=== PATIENT | female | born 1990 | race Caucasian/White ===

== ENCOUNTER 2023-10-24 08:07 | Outpatient (CLI) | payer OTHER, SELFPAY ==
--- NOTE | 2023-10-24 08:15 | US_ITS ---
Final Report Patient: CARLOTA BECKER Facility:?[facility] Patient ID:?[id number] Site Patient ID:?[id number]. Site :?1990 Study:?US OB Pelvis TV dating/viability-10/24/2023 8:57:39 AM Ordering Physician:FLORENTIN Final Report: INDICATION: First trimester scan, establish dates. COMPARISON: None. TECHNIQUE: Real-time brown-scale imaging of the pelvis was performed. FINDINGS: Sonographic imaging demonstrates a single living intrauterine gestation. The embryo demonstrates a regular cardiac rate measuring 165 beats per minute. The embryo`s crown-rump length measurement of 1.5 cm corresponds to a gestational age of 7 weeks 6 days with a sonographic due date of 06/05/2024. There is a normal-appearing yolk sac. There are no gross abnormalities noted within the embryo at this early state of development. The gestational sac has a normal appearance. There is a 1.4 x 0.4 x 0.4 cm perigestational hemorrhage. The amount of fluid within the sac appears appropriate for gestational age. The cervix is closed. The myometrium appears normal. The ovaries are of normal size. Corpus luteal cyst right ovary. There are no suspicious fluid collections noted in the cul-de-sac. IMPRESSION: Single living intrauterine with sonographic gestational age 7 weeks 6 days and a sonographic due date of 06/05/2024. Right fundal subchorionic hemorrhage measuring 1.4 x 0.4 x 0.4 cm. Dictated by Felix Caballero MD @ 10/24/2023 9:05:18 AM (Electronic Signature)
== END 2023-10-24 08:08 | disposition home or self-care (01) ==
LOC: US 08:07
PROVIDERS: Visit Provider Advanced Practice Midwife
DX: Z34.91 Encounter for supervision of normal pregnancy, unspecified, first trimester (principal); O20.9 Hemorrhage in early pregnancy, unspecified; Z3A.01 Less than 8 weeks gestation of pregnancy
CPT/HCPCS: 76817

== ENCOUNTER 2023-10-24 10:00 | Outpatient (CLI) | payer OTHER, SELFPAY | END 2023-10-24 10:01 | disposition home or self-care (01) | LOC: NFLDREF 10-25 06:26 | PROVIDERS: Referring Provider Obstetrics & Gynecology; Visit Provider Advanced Practice Midwife | DX: Z34.91 Encounter for supervision of normal pregnancy, unspecified, first trimester (principal); Z3A.08 8 weeks gestation of pregnancy | CPT/HCPCS: 86592; 86703; 86704; 86706; 86762; 86787; 86803; 86850; 86900; 86901; 87086; 87340; 87491; 87591 ==

== ENCOUNTER 2024-01-16 10:54 | Outpatient (CLI) | payer BC, SELFPAY | END 2024-01-16 10:55 | disposition home or self-care (01) | PROVIDERS: Visit Provider Obstetrics & Gynecology | DX: Z34.92 Encounter for supervision of normal pregnancy, unspecified, second trimester (principal); Z3A.20 20 weeks gestation of pregnancy; D22.9 Melanocytic nevi, unspecified; Z86.718 Personal history of other venous thrombosis and embolism | CPT/HCPCS: 81240; 81241; 86146; 86147 ==

== ENCOUNTER 2024-02-07 13:32 | Outpatient (CLI) | payer BC, SELFPAY ==
--- OUTSIDE RECORDS SUMMARY | 2024-02-23 18:42 | XMS_ITS | Encounter Summary ---
Author Organization [facility] Address [address] [place] [address] Care Team Providers Care Supervisor Ditching Name Role Phone No Ref-Primary, Physician Primary Care Provider Reason for Referral * Diagnostic Imaging Ultrasound (Routine) - Pending Review Specialty Diagnoses / Procedures Referred By Cali carvajal Referred To Contact Radiology. Diagnoses Personal history of venous thrombosis and embolism Procedures [facility] US Comprehensive Josef Leija MD [address] [place] [address] Referral ID Status Reason Start Date Expiration Date V isits Requested Visits Authorized [id number] Pending Review 12/25/2023 12/24/2024 1 1 Reason for Visit * Diagnostic Imaging Ultrasound (Routine) - Pending Review Specialty Diagnoses / Procedures Referred By Cali carvajal Referred To Contact Radiology. Diagnoses Personal history of venous thrombosis and embolism Procedures [facility] US Josef Watt MD [address] [place] [address] Referral ID Status Reason Start Date Expiration Date V isits Requested Visits Authorized [id number] Pending Review 12/25/2023 12/24/2024 1 1 Encounter Details Date Type Department Care Team (Latest Contact Info) Description 01/10/2024 9:18 AM CDT - 01/10/2024 11:59 PM CDT Hospital Encounter [facility] [address] [facility] [address] [place] [phone] Blanca Cho MD [address] [place] [address] Personal history of venous thrombosis and embolism Discharge Disposition: Home or Self Care Social History Tobacco Use Types Packs/Day Years Used Date Smoking Tobacco: Never Assessed Adolescent Education Answer Date Record ed Getting School Help Needed Not on file 12/19 Estimated Date of Delivery Comme nts Yes 06/01/2024 Based on last me nstrual period of 08/26/2023 Sex and Gender Information Value Date Recorded Sex Assigned at Not on file Gender Identity Not on file Sexual Orientation Not on file documented as of this encounter Medications at Time of Discharge Medication Sig Dispensed Refills Start Date End Date enoxaparin ANTICOAGULANT (LOVENOX ANTICOAGULANT) 40 MG/0.4ML syringe Inject 40 mg Subcutaneous daily 10/24/2023 MV-Min-Fe Fum-FA-DHA ( 1 PO) Take 1 tablet by mouth daily 10/24/2023 documented as of this encounter Plan of Treatment Not on file documented as of this encounter Procedures Procedure Name Priority Date/Time Associated Diagnosis Comments [facility] COMPREHENSIVE SINGLE Routine 01/10/2024 11:09 AM CDT Personal history of venous thrombosis and embolism documented in this encounter Results * [facility] Comprehensive Single (01/10/2024 11:09 AM CDT) Anatomical Region Laterality Modality Ultrasound 01/10/2024 9:57 AM CDT Impressions 01/10/2024 4:01 PM CDT IMPRESSION ----- 1. Whiting at 19w 4d gestational age. 2. No anomalies commonly detected by ultrasound were identified in the detailed anatomic survey within the limits of ultrasound. 3. Growth parameters and estimated weight were consistent with gestational age predicted by assigned PIETRE. 4. The amniotic fluid volume appeared normal. 5. On transabdominal imaging the cervix appeared long and closed. 6. The placenta is anterior with a marginal placental cord insertion. Narrative 01/10/2024 4:01 PM CDT ?Comprehensive ----- Pat. Name: CARLOTA HANDY ? Study Date: ??01/10/2024 9:57am Pat. NO: ??[id number] ?Referring ??MD: SHERON GRIFFITH Site: ??[facility] ? Meat Stock Clerk: Janet Perera RDMS : ??1990 ?Age: ?? 33 ----- INDICATION ----- History of DVT x 2 METHOD ----- Transabdominal ultrasound examination. View: Sufficient ----- Whiting . Number of fetuses: 1 DATING ----- ? Date ?Details ?Gest. age ?PIETER LMP ?08/26/2023 ? 19 w + 4 d ? 06/01/2024 Prior assessment ? 10/24/2023 ? GA: 7 w + 6 d ?19 w + 0 d ? 06/05/2024 U/S ? 01/10/2024 ?based upon AC, BPD, Femur, HC ? 19 w + 3 d ? 06/02/2024 Assigned dating ?Dating performed on 01/10/2024, based on the LMP ?19 w + 4 d ? 06/01/2024 GENERAL EVALUATION ----- Cardiac activity present. FHR 144 bpm. movements present. Presentation breech. Placenta Anterior, No Previa, > 2 cm from internal os. Umbilical cord 3 vessel cord, marginal insertion. Amniotic fluid Amount of AF: normal. MVP 4.3 cm. BIOMETRY ----- Main Biometry: BPD ?44.2 ?mm ? 19w 3d ?Hadlock OFD ?57.3 ?mm ? 18w 6d ?Nicolaides HC ?163.0 ?mm ?19w 0d ?Hadlock Cerebellum tr ?18.7 ? mm ?18w 2d ?Nicolaides AC ?150.1 ?mm ?20w 2d ?68% ?Hadlock Femur ?28.9 ? mm ?18w 6d ?Hadlock Humerus ?29.7 ?mm ? 19w 5d ?Velvet Weight Calculation: EFW ? 299 ? g ? 43% ?Hadlock EFW (lb,oz) ? 0 lb 11 ? oz EFW by ?Hadlock ([id number]) Head / Face / Neck Biometry: Flat Sheet Maker ? 6.1 ? mm CM ?3.9 ? mm Nasal bone ? 5.5 ? mm Nuchal fold ? 2.7 ? mm ANATOMY ----- The following structures appear normal: Head / Neck ? Cranium. Head size. Head shape. Lateral ventricles. Choroid plexus. Midline falx. Cavum septi pellucidi. Cerebellum. Cisterna magna. ? Parenchyma. Thalami. Vermis. ? Neck. Nuchal fold. Face ? Lips. Profile. Nose. Maxilla. Mandible. Orbits. Lens. Heart / Thorax ?4-chamber view. RVOT view. LVOT view. Situs. Aortic arch view. Bicaval view. Ductal arch view. Superior vena cava. Inferior vena cava. 3-vessel ? view. 4-zkbshk-iwiuxjl view. Cardiac position. Cardiac size. Cardiac rhythm. ? Right lung. Left lung. Diaphragm. Abdomen ? Abdominal wall. Cord insertion. Stomach. Kidneys. Bladder. Liver. Bowel. Genitals. Spine ?Cervical spine. Thoracic spine. Lumbar spine. Sacral spine. Extremities / Skeleton ?Right arm. Right hand. Left arm. Left hand. Right leg. Right foot. Left leg. Left foot. Gender: female. MATERNAL STRUCTURES ----- Cervix ?Visualized ? Appearance: Appears Closed ? Cervical length 35.4 mm Right Ovary ?Visualized Left Ovary ?Visualized RECOMMENDATION ----- Thank-you for referring your patient for MFM consult & ultrasound assessment. I discussed the findings on today's ultrasound with the patient. I reviewed the limitations of ultrasound both in detecting aneuploidy and structural abnormalities. Ultrasound can routinely detect 80-90% of structural abnormalities. She had low risk cell free DNA for genetic screening this . Please see separate note in Epic for full details from today's consult visit including recommendations for ongoing management. Additionally, we reviewed the finding of a marginal placental cord insertion. Due to this growth is recommended at 28 and 34 weeks. If there is progression to a velamentous cord insertion then monthly ultrasound assessment of growth is recommended in addition to weekly surveillance starting at 36 weeks. I presume these follow-ups will be done in your office, but can be scheduled here if preferred. Return to primary provider for continued care. If you have questions regarding today's evaluation or if we can be of further service, please contact the [facility]. anomalies may be present but not detected Procedure Note Blanca Cho MD - 01/10/2024 Comprehensive ----- Pat. Name: CARLOTA HANDY Study Date: 01/10/2024 9:57am Pat. NO: [id number] Referring MD: SHERON GRIFFITH Site: [facility] Meat Stock Clerk: Janet Perera RDMS : 1990 Age: 33 ----- INDICATION ----- History of DVT x 2 METHOD ----- Transabdominal ultrasound examination. View: Sufficient ----- Whiting . Number of fetuses: 1 DATING ----- DateDetailsGest. age PIETER LMP w + 4 d 06/01/2024 Prior assessment 10/24/2023 GA: 7 w +6 d19 w + 0 d 06/05/2024 U/S 01/10/2024ased upon AC, BPD, Femur, HC19 w + 3 d 06/02/2024 Assigned dating Dating performed on 01/10/2024, based onthe LMP 19 w+ 4 d 06/01/2024 GENERAL EVALUATION ----- Cardiac activity present. FHR 144 bpm. movements present. Presentation breech. Placenta Anterior, No Previa, > 2 cm from internal os. Umbilical cord 3 vessel cord, marginal insertion. Amniotic fluid Amount of AF: normal. MVP 4.3 cm. BIOMETRY ----- Main Biometry: BPD 44.2 mm19w 3d Hadlock OFD 57.3 mm18w 6d Nicolaides HC 163.0 mm19w 0d Hadlock Cerebellum tr 18.7 mm18w 2d Nicolaides AC 150.1 mm20w 2d 68% Hadlock Femur 28.9 mm18w 6d Hadlock Humerus 29.7 mm19w 5d Velvet Weight Calculation: EFW 299 g43% Hadlock EFW (lb,oz) 0 lb 11 oz EFW by Hadlock ([id number]) Head / Face / Neck Biometry: Flat Sheet Maker 6.1 mm CM 3.9 mm Nasal bone 5.5 mm Nuchal fold 2.7 mm ANATOMY ----- The following structures appear normal: Head / Neck Cranium. Head size. Head shape.Lateral ventricles. Choroid plexus. Midline falx. Cavum septi pellucidi.Cerebellum. Cisterna magna. Parenchyma. Thalami. Vermis. Neck. Nuchal fold. Face Lips. Profile. Nose. Maxilla.Mandible. Orbits. Lens. Heart / Thorax 4-chamber view. RVOT view. LVOT view.Situs. Aortic arch view. Bicaval view. Ductal arch view. Superior venacava. Inferior vena cava. 3-vessel view. 1-gxmgcv-qougvcj view.Cardiac position. Cardiac size. Cardiac rhythm. Right lung. Left lung.Diaphragm. Abdomen Abdominal wall. Cord insertion.Stomach. Kidneys. Bladder. Liver. Bowel. Genitals. Spine Cervical spine. Thoracic spine.Lumbar spine. Sacral spine. Extremities / Skeleton Right arm. Right hand. Left arm. [place]ef[place]and. Right leg. Right foot. Left leg. Left foot. Gender: female. MATERNAL STRUCTURES ----- Cervix Visualized Appearance: Appears Closed Cervical length 35.4 mm Right Ovary Visualized Left Ovary Visualized RECOMMENDATION ----- Thank-you for referring your patient for M consult & ultrasoundassessment. I discussed the findings on today's ultrasound with the patient. Ireviewed the limitations of ultrasound both in detecting aneuploidy andstructural abnormalities. Ultrasound can routinely detect 80-90% of structural abnormalities. She had low riskcell free DNA for genetic screening this . Please see separate note in Epic for full details from today's consultvisit including recommendations for ongoing management. Additionally, we reviewed the finding of a marginal placental cordinsertion. Due to this growth is recommended at 28 and 34 weeks. Ifthere is progression to a velamentous cord insertion then monthly ultrasound assessment of fetalgrowth is recommended in addition to weekly surveillancestarting at 36 weeks. I presume these follow-ups will be done in your office, but can be scheduledhere if preferred. Return to primary provider for continued care. If you have questions regarding today's evaluation or if we can be offurther service, please contact the [facility]. anomalies may be present but not detected IMPRESSION ----- 1. Whiting at 19w 4d gestational age. 2. No anomalies commonly detected by ultrasound were identified inthe detailed anatomic survey within the limits of prenatalultrasound. 3. Growth parameters and estimated weight were consistent withgestational age predicted by assigned PIETER. 4. The amniotic fluid volume appeared normal. 5. On transabdominal imaging the cervix appeared long and closed. 6. The placenta is anterior with a marginal placental cord insertion. Josef Yoo MD [facility] US ORDERABLE S documented in this encounter Visit Diagnoses Diagnosis Personal history of venous thrombosis and embolism documented in this encounter Care Teams Supervisor Ditching Relationship Specialty Start Date End Date No Ref-Primary, Physician PCP - General 12/25/23 documented as of this encounter
--- OUTSIDE RECORDS SUMMARY | 2024-02-23 18:42 | XMS_ITS | Encounter Summary ---
Author Organization [facility] Address [address] [place] [address] Care Team Providers Care Trap Puller Name Role Phone No Ref-Primary, Physician Primary Care Provider Encounter Details Date Type Department Care Team (Latest Contact Info) Description 01/10/2024 Travel Social History Tobacco Use Types Packs/Day Years [...] on file documented as of this encounter Plan of Treatment Not on file documented as of this encounter Visit Diagnoses Not on filedocumented in this encounter Care Teams Trap Puller Relationship Specialty Start Date End Date No Ref-Primary, Physician PCP - General 12/25/23 documented as of this encounter
--- OUTSIDE RECORDS SUMMARY | 2024-02-23 18:42 | XMS_ITS | Clinical Summary ---
Author Organization [facility] Address [address] [place] [address] Care Team Providers Care Electric Motor Tester Assembler Name Role Phone No Ref-Primary, Physician Primary Care Provider Blanca Cho MD Unavailable [phone] Allergies Active Allergy Reactions Criticality Noted Date Comments Sulfa Antibiotics Rash High 12/19/2023 Medications Medication Sig Dispensed Refills Start Date End Date Status enoxaparin ANTICOAGULANT (LOVENOX ANTICOAGULANT) 40 MG/0.4ML syringe Inject 40 mg Subcutaneous daily 10/24/2023 Active MV-Min-Fe Fum-FA-DHA ( 1 PO) Take 1 tablet by mouth daily 10/24/2023 Active Encounters Date Type Department Care Team Description 01/10/2024 11:00 AM CDT Office Visit [facility] Medicine [facility] [address] [place] [phone] Blanca Cho MD Personal history of venous thrombosis and embolism (Primary Dx); Marginal insertion of umbilical cord affecting management of mother in second trimester 01/10/2024 9:30 AM CDT Office Visit [facility] Medicine [facility] [address] [facility] [address] [place] [address] Blanca Cho MD Eddy, Kaitlyn Encounter for screening (Primary Dx); Personal history of venous thrombosis and embolism; Family history of chromosomal abnormality 01/10/2024 9:18 AM CDT - 01/10/2024 11:59 PM CDT Hospital Encounter [facility] [address] [facility] [address] [place] [phone] Blanca Cho MD Personal history of venous thrombosis and embolism Discharge Disposition: Home or Self Care 01/10/2024 Travel 01/02/2024 PRE VISIT [facility] [address] [place] [phone] Amanda Delaney RN Ultrasound (History DVTx2); Genetic Counseling (History of DVTx2) 12/25/2023 Orders Only [facility] [address] [place], [place] [phone] Belinda Callahan, YESY Personal history of venous thrombosis and embolism (Primary Dx) 12/20/2023 Telephone [facility] [address] [place], [place] [phone] Belinda Callahan, YESY 12/19/2023 Medical Correspondence [facility] Info [facility] [address] [place] [address] Scan, Non-Provider 12/19/2023 Transcribe Orders [facility] [address] [facility] [address] [place] [address] Afshan Griffith MD related condition (Primary Dx) from Last 3 Months Social History Tobacco Use Types Packs/Day Years [...] on file Sexual Orientation Not on file Last Filed Vital Signs Vital Sign Reading Time Taken Comments Blood Pressure 132/72 01/10/2024 10:09 AM CDT Pulse 73 01/10/2024 10:09 AM CDT Temperature 36.8 ??C (98.3 ??F) 01/10/2024 10:09 AM C DT Respiratory Rate 18 01/10/2024 10:09 AM CDT Oxygen Saturation 100% 01/10/2024 10:09 AM CDT RA Inhaled Oxygen Concentration - - Weight - - Height - - Body Mass Index - - Plan of Treatment Health Maintenance Due Date Last Done Comments ADVANCE CARE PLANNING 1990 ANNUAL REVIEW OF HM ORDERS 1990 YEARLY PREVENTIVE VISIT 1990 HIV SCREENING 2005 HEPATITIS C SCREENING 01/31/2008 PAP 2011 COVID-19 Vaccine ( season) 2023 07/13/2021, 12/05/2020, 11/14/2020 PHQ-2 (once per calendar year) 2023 MATERNAL SCREENING DISCUSSION 11/04/2023 OBGCT (OB) 02/10/2024 INFLUENZA VACCINE (Season Ended) 2024 06/16/2022, 06/23/2021, 06/19/2020, Additional history exists RSV VACCINE ( & 60+) (1 - Risk 1-dose series) 05/05/2024 DTAP/TDAP/TD IMMUNIZATION (5 - Td or Tdap) 01/27/2028 01/26/2018, 06/19/2017, 07/20/2012, Additional history exists HEPATITIS B IMMUNIZATION Completed 006, 06/09/2005, 04/05/2005 MENINGITIS IMMUNIZATION Aged Out 11/16/2005 No l onger eligible based on patient's age to complete this topic HPV IMMUNIZATION Completed 06/04/2008, , 11/20/2007 IPV IMMUNIZATION Aged Out No longer e ligible based on patient's age to complete this topic Pneumococcal Vaccine: Pediatrics (0 to 5 Years) and At-Risk Patients (6 to 64 Years) Aged Out No longer eligible based on patient's age to complete this topic RSV MONOCLONAL ANTIBODY Aged Out No l onger eligible based on patient's age to complete this topic Procedures Procedure Name Priority Date/Time Associated Diagnosis Comments [facility] COMPREHENSIVE SINGLE Routine 01/10/2024 11:09 AM CDT Personal history of venous thrombosis and embolism from Last 3 Months Results * [facility] US Comprehensive Single (01/10/2024 11:09 AM CDT) Anatomical Region Laterality Modality Ultrasound 01/10/2024 9:57 AM CDT Impressions 01/10/2024 4:01 PM CDT IMPRESSION ----- 1. Whiting at 19w 4d gestational age. 2. No anomalies commonly detected by ultrasound were identified in the detailed anatomic survey within the limits of ultrasound. 3. Growth parameters and estimated weight were consistent with gestational age predicted by assigned PIETER. 4. The amniotic fluid volume appeared normal. 5. On transabdominal imaging the cervix appeared long and closed. 6. The placenta is anterior with a marginal placental cord insertion. Narrative 01/10/2024 4:01 PM CDT ?Comprehensive ----- Pat. Name: CARLOTA HANDY ? Study Date: ??01/10/2024 9:57am Pat. NO: ??[id number] ?Referring ??: AFSHAN GRIFFITH Site: ??[facility] ? Editorial Director: Janet Perera RDMS : ??1990 ?Age: ?? [...] 0 lb 11 ? oz EFW by ?[facility] ([id number]) Head / Face / Neck Biometry: Film Processing Supervisor ? 6.1 ? mm CM ?3.9 ? [...] cava. Inferior vena cava. 3-vessel ? view. 4-yalrdd-luiymxj view. Cardiac position. Cardiac size. Cardiac rhythm. [...] HANDY Study Date: 01/10/2024 9:57am Pat. NO: [id number] Referring MD: AFSHAN GRIFFITH Site: [facility] Editorial Director: Janet Perera RDMS : 1990 Age: 33 [...] 0 lb 11 oz EFW by Hadlock ([id number]) Head / Face / Neck Biometry: Film Processing Supervisor 6.1 mm CM 3.9 mm Nasal bone [...] Superior venacava. Inferior vena cava. 3-vessel view. 7-gwzrop-dbjztto view.Cardiac position. Cardiac size. Cardiac rhythm. Right [...] ----- Thank-you for referring your patient for [facility] consult & ultrasoundassessment. I discussed the findings [...] marginal placental cord insertion. Josef Yoo MD [facility] ORDERABLE S from Last 3 Months Care Teams Electric Motor Tester Assembler Relationship Specialty Start Date End Date No Ref-Primary, Physician PCP - General 12/25/23 Blanca Cho MD [address] [place] [address] Assigned OBGYN Provider 01/25/24
--- OUTSIDE RECORDS SUMMARY | 2024-02-23 18:42 | XMS_ITS | Referral Summary ---
Author Organization [facility] Address [address] [place] [address] Care Team Providers Care Sanitation Worker Hosing Machinery Name Role Phone No Ref-Primary, Physician Primary Care Provider Blanca Cho MD Unavailable [phone] Encounters Date Type Department Care Team Description 01/10/2024 Travel 01/10/2024 9:18 AM CDT - 01/10/2024 11:59 PM CDT Hospital Encounter [facility] Medicine [facility] [address] [facility] [address] [place] [phone] Blanca Cho MD Personal history of venous thrombosis and embolism Discharge Disposition: Home or Self Care 01/10/2024 11:00 AM CDT Office Visit [facility] Medicine [facility] [address] [facility] [address] [place] [phone] Blanca Cho MD Personal history of venous thrombosis and embolism (Primary Dx); Marginal insertion of umbilical cord affecting management of mother in second trimester 01/10/2024 9:30 AM CDT Office Visit [facility] [address] [facility] [address] [place] [phone] Blanca Cho MD Eddy, Kaitlyn, GC Encounter for screening (Primary Dx); Personal history of venous thrombosis and embolism; Family history of chromosomal abnormality 01/02/2024 PRE VISIT [facility] Medicine [address] [place] [phone] Amanda Delaney RN Ultrasound (History DVTx2); Genetic Counseling (History of DVTx2) 12/25/2023 Orders Only [facility] [place] [address] [place] [address] Belinda Callahan, RN Personal history of venous thrombosis and embolism (Primary Dx) 12/20/2023 Telephone [facility] [place] [address] [place] [address] Belinda Callahan, YESY 12/19/2023 Medical Correspondence [facility] [address] [place] [address] Scan, Non-Provider 12/19/2023 Transcribe Orders [facility] Maternal [facility] [address] [facility] [address] [place] [address] Afshan Griffith MD related condition (Primary Dx) from Last 3 Months Allergies Active Allergy Reactions Criticality Noted Date Comments Sulfa Antibiotics Rash High 12/19/2023 Medications Medication Sig Dispensed Refills Start Date End Date Status enoxaparin ANTICOAGULANT (LOVENOX ANTICOAGULANT) 40 MG/0.4ML syringe Inject 40 mg Subcutaneous daily 10/24/2023 Active MV-Min-Fe Fum-FA-DHA ( 1 PO) Take 1 tablet by mouth daily 10/24/2023 Active Social History Tobacco Use Types Packs/Day Years [...] Mass Index - - Plan of Treatment Not on file Procedures Procedure Name Priority Date/Time Associated Diagnosis Comments [facility] US COMPREHENSIVE SINGLE Routine 01/10/2024 11:09 AM CDT Personal history of venous thrombosis and embolism from Last 3 Months Results * [facility] US Comprehensive Single (01/10/2024 11:09 AM [...] ? Study Date: ??01/10/2024 9:57am Pat. NO: ??[id number] ?Referring ??MD: AFSHAN GRIFFITH Site: ??[facility] ? Human Resources Office Assistant: Janet Perera RDMS : ??1990 ?Age: ?? [...] lb 11 ? oz EFW by ?Hadlock (NBH-OC-IM-FL) Head / Face / Neck Biometry: Aging Department Supervisor ? 6.1 ? mm CM ?3.9 [...] cava. Inferior vena cava. 3-vessel ? view. 2-gybjii-kzuraog view. Cardiac position. Cardiac size. Cardiac rhythm. [...] HANDY Study Date: 01/10/2024 9:57am Pat. NO: [id number] Referring MD: AFSHAN GRIFFITH Site: [facility] Human Resources Office Assistant: Janet Perera RDMS : 1990 Age: 33 [...] 0 lb 11 oz EFW by Hadlock (KDE-IY-VO-FL) Head / Face / Neck Biometry: Aging Department Supervisor 6.1 mm CM 3.9 mm Nasal [...] Superior venacava. Inferior vena cava. 3-vessel view. 3-sukvya-bptpyxl view.Cardiac position. Cardiac size. Cardiac rhythm. Right [...] ----- Thank-you for referring your patient for [facility] consult & ultrasoundassessment. I discussed the [...] today's evaluation or if [facility] can [facility], please contact the [facility]. [...] with a marginal placental cord insertion. Josef WELCH [facility] US ORDERABLE S from Last 3 Months Care Teams Sanitation Worker Hosing Machinery Relationship Specialty Start Date End Date No Ref-Primary, Physician PCP - General 12/25/23 Blanca Cho MD [address] [place] [address] Assigned OBGYN Provider 01/25/24
--- OUTSIDE RECORDS SUMMARY | 2024-02-23 18:42 | XMS_ITS | Encounter Summary ---
Author Organization [facility] Address [address] [place] [address] Care Team Providers Care Teacher Theater Arts Name Role Phone No Ref-Primary, Physician Primary Care Provider Reason for Visit * Reason Comments Genetic Counseling * Consultation (Routine: Next available opening) - Pending Review Specialty Diagnoses / Procedures Referred By Cali t Referred To Contact Diagnoses Personal history of venous thrombosis and embolism Josef Yoo MD [address] [place] [address] Referral ID Status Reason Start Date Expiration Date V isits Requested Visits Authorized [id number] Pending Review 12/25/2023 12/24/2024 1 1 Encounter Details Date Type Department Care Team (Late st Contact Info) Description 01/10/2024 9:30 AM CDT Office Visit [facility] [place] [address] [facility] [address] [place] [phone] Blanca Cho MD [address] [place] [address] Mayelin Dick GC [address] [place] [address] Encounter for screening (Primary Dx); Personal history of venous thrombosis and embolism; Family history of chromosomal abnormality Social History Tobacco Use Types Packs/Day Years [...] on file documented as of this encounter Progress Notes * Mayelin DickOREN - 01/10/2024 9:30 AM CDT [facility] Medicine [place] Genetic Counseling Consult Patient: Katharina Handy Date of : 1990 Date of Service: 01/10/24 Katharina was seen at the [facility] [place] for genetic counseling consultation as part of her appointment for level II comprehensive ultrasound. The patient was unaccompanied to our portion of today's visit. IMPRESSION/ PLAN 1. Katharina underwent [id number] NIPT earlier in this , which was low risk. She is aware amniocentesis remains available. 2. Katharina had a comprehensive (level II) ultrasound today. Please see the ultrasound report for further details. 3. 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 She reported her thrombophilia work up was WNL. She is on Lovenox. She had a MFM consult today, please see corresponding report for further details. HISTORY /Parity: Age at Delivery: 34 year old Gestational Age: 19w4d PIETER: 06/01/2024, by Last Menstrual Period No significant complications or exposures were reported in the current . 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 She reported her thrombophilia work up was WNL. She is on Lovenox. She had a MFM consult today, please see corresponding report for further details. FAMILY HISTORY A three-generation pedigree was obtained today and is scanned under the Media tab in [facility] [employer]. It is important to note that the family history provided is based on the patient's recollection and reported in the absence of medical records. If the family history changes or if more information is obtained, the patient should contact our clinic as this may alter recommendations. The following significant findings were reported today: It was reported that Luke's brother has Down syndrome. We reviewed that over 95% of cases of Down syndrome result from trisomy 21 caused by nondisjunction. Rarely, Down syndrome occurs due to a translocation involving chromosome 21, which, if carried by other family members, puts them at increased risk to have a baby with Down syndrome. This is likely a sporadic case in his brother, however a familial translocation cannot be excluded without further details of the affected individual. It was reported that Luke's mother and several of her siblings were found to have factor V Leiden. Factor V Leiden thrombophilia is an inherited blood clotting disorder caused by a particular geneticvariant in the F5 gene that provides instructions for a protein called sports analyst factor V. Individuals with factor V leiden thrombophilia are at higher risk of developing a deep venous thrombosis (DVT) which can occur throughout the body. We reviewed risk for Luke and subsequently the couple's children. It was reported that Luke has not undergone testing for factor V. We reviewed that this information should be shared with his primary care provider and their musical instrument maker. It was reported that Katharina's maternal uncle had a son who at age 1 due to what they believe was leukemia. This uncle has three daughters and was reported to have had multiple losses of male pregnancies. We reviewed that there can be X-linked dominant conditions with lethality in males. Given this is history is through her uncle, it is less likely to increase risk for Katharina if thiswere to be the cause for the loss of these male pregnancies. We did review expanded carrier screening options, which were declined. Otherwise, the reported family history is unremarkable for multiple miscarriages, stillbirths, defects, intellectual disabilities, known genetic conditions, and consanguinity. CARRIER SCREENING Expanded carrier screening is available to screen for autosomal recessive conditions and X-linked conditions in a large list of genes. Autosomal recessive conditions happen when a mutation has been inherited from the egg and sperm and include conditions like cystic fibrosis, thalassemia, hearing loss, spinal muscular atrophy, and more. X-linked conditions happen when a mutation has been inheritedfrom the egg and include conditions like fragile X syndrome. The patient did not elect to pursue the carrier screening options discussed today, however is awarethese remain available. RISK ASSESSMENT FOR CHROMOSOME CONDITIONS We explained that the risk for chromosome abnormalities increases with maternal age. We discussed specific features of common chromosome abnormalities, including Down syndrome, trisomy 13, trisomy 18, and sex chromosome trisomies. At age 34 at midtrimester, the risk to have a baby with Down syndrome is 1 in 342. At age 34 at midtrimester, the risk to have a baby with any chromosome abnormality is 1 in 172. Katharina underwent [id number] NIPT earlier in this . We reviewed with result in detail today. Results indicate NO ANEUPLOIDY DETECTED for chromosomes 21, 18, or 13. Sex chromosome aneuploidies were not assessed. This puts her current at low risk for Down syndrome, trisomy 18, and trisomy 13. Although these results are reassuring, this does not replace a standard chromosome analysis from a chorionic villus sampling or amniocentesis. GENETIC TESTING OPTIONS Genetic testing during a includes screening and diagnostic procedures. We discussed the following ultrasound options: Comprehensive level II ultrasound ( Anatomy Ultrasound) Ultrasound done between 18-20 weeks gestation Screens for major defects and markers for aneuploidy (like trisomy 21 and trisomy 18) Includes looking at the fetus/baby's growth, heart, organs (stomach, kidneys), placenta, and amniotic fluid We discussed the following diagnostic options: Amniocentesis Invasive diagnostic procedure done after 15 weeks gestation The procedure collects a small sample of amniotic fluid for the purpose of chromosomal testing and/or other genetic testing Diagnostic result; more than 99% sensitivity for chromosome abnormalities Testing for AFP in the amniotic fluid can test for open neural tube defects The benefits and limitations of noninvasive screening were reviewed. Screening tests provide a riskassessment (chance) specific to the for certain chromosome abnormalities but cannotdefinitively diagnose or exclude a chromosome abnormality. Follow-up genetic counseling and consideration of diagnostic testing is recommended with any abnormal screening result. Diagnostic testing during a is more certain and can test for more conditions. However, the tests do havea risk of miscarriage that requires careful consideration. These tests can detect chromosome abnormalities with greater than 99% certainty. Results can be compromised by maternal cell contamination or mosaicism and are limited by the resolution of current genetic testing technology. There is no screening or diagnostic test that detects all forms of defects or intellectual disability. It was a pleasure to be involved with Katharina???s care. [id number]-tx-[id number] time of the meeting was 18 minutes. Mayelin Dick MS, [facility] Licensed Genetic Counselor [facility] Maternal Medicine [email or web address] documented in this encounter Plan of Treatment Not on file documented as of this encounter Visit Diagnoses Diagnosis Encounter for screening- Primary Personal history of venous thrombosis and embolism Family history of chromosomal abnormality Family history of congenital anomalies documented in this encounter Care Teams Teacher Theater Arts Relationship Specialty Start Date End Date No Ref-Primary, Physician PCP - General 12/25/23 documented as of this encounter
--- OUTSIDE RECORDS SUMMARY | 2024-02-23 18:42 | XMS_ITS | Encounter Summary ---
Author Organization [facility] Address [address] [place] [address]. [place] [address] Care Team Providers Care Tire Service Technician Name Role Phone Unavailable Primary Care Provider Unavailabl e Reason for Referral * Consultation (Routine: Next available opening) - Pending Review Specialty Diagnoses / Procedures Referred By Cali carvajal Referred To Contact Diagnoses related condition Afshan Ruiz MD [facility] [address] [place] [address] Fax: Maternal Med [address] [place] [address] Referral ID Status Reason Start Date Expiration Date V isits Requested Visits Authorized [id number] Pending Review 12/19/2023 12/18/2024 1 1 Question Answer Preferred Location: [facility] - [place] 06/01/2024 Ultrasound Comprehensive US (>than 18 weeks [place]) US PROC NONE MFM Issue OTHER (enter details in Comments) - personal history of other venous thrombosis and embolism fax [facility], Afshan Ruiz, Comments There is no height or weight on file to calculate BMI. >> Patient may proceed with recommendations for further testing as directed by the Maternal Medicine Specialist >> >> If requesting Echo: MFM will determine appropriate location for exam due to indication. Please be aware that coverage of these services is subject to the terms and limitations of your health insurance plan. Call member services at your health plan with any benefit or coverage questions. Encounter Details Date Type Department Care Team (Latest Contact Info) Description 12/19/[address] [facility] [place] [address] [place] [phone] Afshan Ruiz MD [address] [address] related condition (Primary Dx) Social History Tobacco Use Types Packs/Day Years Used Date Smoking Tobacco: Never Assessed Adolescent Education Answer Date Record ed Getting School Help Needed Not on file 12/19 Sex and Gender Information Value Date Recorded Sex Assigned at Not on file Gender Identity Not on file Sexual Orientation Not on file documented as of this encounter Plan of Treatment Scheduled Referrals Name Type Priority Associated Diagnoses Orde r Schedule Mat Med Ctr Referral - Referral Routine: Next available opening related condition Expected: 12/19/2023 (Approximate), Expires: 06/16/2024 documented as of this encounter Visit Diagnoses Diagnosis related condition- Primary Unspecified complication of , unspecified as to episode of care documented in this encounter
--- OUTSIDE RECORDS SUMMARY | 2024-02-23 18:42 | XMS_ITS | Encounter Summary ---
Author Organization [facility] Address [address] [place] [address] Care Team Providers Care Supervisor Scrap Preparation Name Role Phone No Ref-Primary, Physician Primary Care Provider Reason for Visit * Reason Comments Ultrasound History DVTx2 Genetic Counseling History of DVTx2 Encounter Details Date Type Department Care Team ([facility] st Contact Info) Description 01/02/2024 PRE VISIT [facility] [address] [phone] Amanda Delaney RN Ultrasound (History DVTx2); Genetic Counseling (History of DVTx2) Social History Tobacco Use Types Packs/Day Years [...] on filedocumented in this encounter Care Teams Supervisor Scrap Preparation Relationship Specialty Start Date End Date No Ref-Primary, Physician PCP - General 12/25/23 documented as of this encounter
--- OUTSIDE RECORDS SUMMARY | 2024-02-23 18:42 | XMS_ITS | Encounter Summary ---
Author Organization [facility] Address [address] [place] [address] Care Team Providers Care Contact Lens Manufacturer Name Role Phone No Ref-Primary, Physician Primary Care Provider Reason for Visit * Reason Comments Genetic Counseling Hx DVT x 2, PCOS, fa roly hx T21 Ultrasound L2- Hx DVT x 2, PCOS , family hx T21 Consult Hx DVT x 2, PCOS, fa roly hx T21 * Consultation (Routine: Next available opening) - Pending Review Specialty Diagnoses / Procedures Referred By Contac t Referred To Contact Diagnoses Personal history of venous thrombosis and embolism Josef Yoo MD [address] [place] [address] Referral ID Status Reason Start Date Expiration Date V isits Requested Visits Authorized [id number] Pending Review 12/25/2023 12/24/2024 1 1 Encounter Details Date Type Department Care Team (Late st Contact Info) Description 01/10/2024 11:00 AM CDT Office Visit [facility] [place] [address] [facility] [address] [place] [address] Blanca Cho MD [address] [place] [address] Personal history of venous thrombosis and embolism (Primary Dx); Marginal insertion of umbilical cord affecting management of mother in second trimester Social History Tobacco Use Types Packs/Day Years [...] on file documented as of this encounter Last Filed Vital Signs Vital Sign Reading [...] - - Body Mass Index - - documented in this encounter Progress Notes * Blanca Cho MD - 01/10/2024 11:00 AM CDT Images from the original note were not included. Maternal Medicine January 10, [address] Ruzi, Thank you for referring your patient Ms. Handy for a Maternal- Medicine consultation today. As you know, she is a 33 year old at 19w4d by LMP c/w 7 week ultrasound with a history of 2 prior DVTs. With regards to her VTE history - Katharina reports that these occurred in her teens. She reports that she was taking a combined OCP when she had the first episode. She reports that she received therapeutic anticoagulation and there was confirmed resolution. She reports still being on OCPs and then having a second lower extremity DVT approximately 2 years later. Although it is documented elsewhere that she had a thrombophilia workup following her VTE she reports to me that she has NOT been testedfor inherited or acquired thrombophilias to her knowledge. No one in her family has had a VTE. In her first she was on prophylactic lovenox throughout and through 6 weeks . This she has also been on prophylactic lovenox. She is having trouble with pain at the injection site (her partner gives her the injections) and reports it just makes her feel off. She has actually not been taking her lovenox the last few days. She is otherwise feeling well. She denies contractions, leakage of fluid and vaginal bleeding. She reports good movement. Obstetrical History: OB History Para Term AB Living 2 1 1 0 0 1 SAB IAB Ectopic Multiple Live Births 0 0 0 0 1 # Outcome Date GA Lbr Ricco/2nd Weight Sex Type Anes PTL Lv 2 Current 1 Term 03/2018 Vag-Vacuum KRISTAL Complications: History of episiotomy Medical History: Past Medical History: Diagnosis Date Personal history of DVT (deep vein thrombosis) x 2 Surgical History: Past Surgical History: Procedure Laterality Date APPENDECTOMY LAPAROSCOPY DIAGNOSTIC (SKILLED NURSING PROFESSIONAL) TONSILLECTOMY & ADENOIDECTOMY Family History: Please see genetic counseling note for full 3-generation family history. She specifically denies a family history of motor/intellectual impairment, stillbirth, genetic or chromosome abnormalities or congenital anomalies. BP 132/72 (BP Location: Right arm, Patient Position: Sitting, Cuff Size: Adult Regular) Pulse 73 Temp 98.3 ??F (36.8 ??C) (Oral) Resp 18 LMP 08/26/2023 SpO2 100% Gen: NAD CV: Regular rate Pulm: Breathing comfortably Abd: Soft, nontender, gravid Ext: WWP Assessment & Recommendations: 33 year old at 19w4d by LMP c/w 7 week ultrasound with a history of 2 prior DVTs. We reviewed that normal is marked by increased clotting potential due to multiple physiologic changes that occur. Because of these changes / patients have a 4-5 fold increased risk of venous thromboembolism (VTE) compared with non patients. The risk of VTE is higher during the period than it is during , especially during the first week . The most important individual risk factor for VTE in is a personal history of thrombosis. The risk of recurrent VTE during is increased threefold to fourfold and 15-25% of all cases of VTE in are recurrent events. The next most important individual risk factor for VTE in is the presence of a thrombophilia. Thrombophilia is present in up to 20-50% of women who experience VTE during and the period. Both acquired and inherited thrombophilias increase the risk of VTE in . We reviewed that ACOG recommendation is for women with a history of thrombosis who have not had a complete evaluation of possible underlying etiologies should be tested for antiphospholipid antibodies and for inherited thrombophilias as the results of thrombophilia testing in women with a prior VTEmay alter the recommendation for pharmacologic prophylaxis during or the intensity of treatment from a prophylactic to an adjusted-dose regimen of sya-ytuvrjbaq-khgbph heparin. We discussedthat since she has not yet had thrombophilia testing this is an evaluation we should do. Some of the components of the evaluation, however, are unable to be performed during /while on anticoagulation, and therefore completion of her work-up will need to be done once off anticoagulation. Additionally, we discussed that she is currently on prophylactic dosing of Lovenox (40mg per day). We reviewed that ACOG recommendations for patients with 2 or more episodes of VTE, not receiving long-term anticoagulation therapy (regardless of presence of a thrombophilia) should be on intermediateor adjusted dose LMWH throughout and . For Katharina this would either be 40mg every 12 hours (intermediate dosing) or 1mg/kg every 12 hours (adjusted dose or therapeutic dosing). Katharina feels uncomfortable with the idea of therapeutic dosing of lovenox at this time but is agreeable to intermediate dosing. Recommendations: -Increase LMWH dosing to 40mg every 12 hours through 6 weeks -Close surveillance for signs/symptoms of VTE/PE -Growth ultrasounds at 28 and 34 weeks with your office given marginal placental cord insertion -Recommend IOL at 39 weeks. Mode of delivery per routine obstetrical indications. -Recommend holding LMWH 24 hours prior to scheduled induction or if signs/symptoms of labor -Resumption of anticoagulation .This can be initiated 4-6 hours following a vaginal delivery or 6-12 hours after . Additional timing should take into account regional anesthesia (24hours after neuraxial anesthesia and at least 4 hours after catheter removal; please coordinate with the anesthesia team). -Recommend inherited/acquired thrombophilia work-up. -Labs to be done now: -Factor V Leiden (DNA analysis) -Prothrombin [id number] mutation (DNA analysis) -Anticardiolipin IgM and IgG -Beta-2 glycoprotein IgM and IgG -Labs to be done off anticoagulation: -Lupus anticoagulant -Protein C and S activity -Antithrombin activity At the end of our discussion, Ms. Handy indicated that her questions were answered and she seemed satisfied with our discussion. Thank you for the opportunity to participate in your patient???s care. If I can be of any further assistance, please do not hesitate to contact me. Sincerely, Blanca Cho MD Bank Secrecy Act Officer, HYPNOTHERAPIST Maternal- Medicine I spent a total of 60 minutes during today's office visit with Ms. Handy. I also spent time reviewing the patient's medical record and documenting in her chart. Over 50% of this time was spent counseling the patient and/or coordinating care. Please see her note for specific details; I have made the necessary edits/additions. The patient was also seen for an ultrasound in the Maternal- Medicine Center today. For a detailed report of the ultrasound examination, please see the ultrasound report which can be found underthe imaging tab. documented in this encounter Nursing Notes * Eufemia Calderon, YESY - 01/10/2024 11:00 AM CDT Katharina seen in clinic today at 19w4d gestation for GC/L2/Rad MFM Consult d/t Hx DVT x 2, PCOS, family hx T21. Pt here with and daughter. VS obtained. Meds and allergies reviewed. Patient reports positive movement, denies pain, denies contractions/pre-term labor, leaking of fluid, or bleeding. Dr. Cho met with pt and discussed POC, see separate note. Plan for growth at 28 weeks, can be done by her primary doctor. Future visits scheduled at front end software developer. Pt discharged stable and ambulatory. Eufemia Calderon, YESY documented in this encounter Plan of Treatment Not on file documented as of this encounter Visit Diagnoses Diagnosis Personal history of venous thrombosis and embolism- Primary Marginal insertion of umbilical cord affecting management of mother in second trimester documented in this encounter Care Teams Contact Lens Manufacturer Relationship Specialty Start Date End Date No Ref-Primary, Physician PCP - General 12/25/23 documented as of this encounter
--- OUTSIDE RECORDS SUMMARY | 2024-02-23 18:42 | XMS_ITS | Encounter Summary ---
Author Organization [facility] Address [facility] [place] [address] Care Team Providers Care Galvanizing Pot Runner Name Role Phone Unavailable Primary Care Provider Unavailabl e Encounter Details Date Type Department Care Team (Late st Contact Info) Description 12/20/2023 Telephone [facility] [place] [address] [place] [address] Belinda Callahan, YESY Social History Tobacco Use Types Packs/Day Years [...]
--- OUTSIDE RECORDS SUMMARY | 2024-02-23 18:42 | XMS_ITS | Encounter Summary ---
Author Organization [facility] Address [address] [place] [address] Care Team Providers Care Rn Embedded Name Role Phone No Ref-Primary, Physician Primary Care Provider Reason for Referral * Consultation (Routine: Next available opening) - Pending Review Specialty Diagnoses / Procedures Referred By Cali carvajal Referred To Contact Diagnoses Personal history of venous thrombosis and embolism Josef Yoo MD [address] [address] Referral ID Status Reason Start Date Expiration Date V isits Requested Visits Authorized [id number] Pending Review 12/25/2023 12/24/2024 1 1 Question Answer MFM Consult Yes Comments Radiologic * Consultation (Routine: Next available opening) - Pending Review Specialty Diagnoses / Procedures Referred By Cali carvajal Referred To Contact Diagnoses Personal history of venous thrombosis and embolism Josef Yoo MD [address] [address] Referral ID Status Reason Start Date Expiration Date V isits Requested Visits Authorized [id number] Pending Review 12/25/2023 12/24/2024 1 1 * Diagnostic Imaging Ultrasound (Routine) - Pending Review Specialty Diagnoses / Procedures Referred By Cali carvajal Referred To Contact Radiology. Diagnoses Personal history of venous thrombosis and embolism Procedures MFM US Comprehensive Single Josef Yoo MD [address] [place] [address] Referral ID Status Reason Start Date Expiration Date V isits Requested Visits Authorized [id number] Pending Review 12/25/2023 12/24/2024 1 1 Encounter Details Date Type Department Care Team (Late st Contact Info) Description 12/25/2023 Orders Only [facility] Maternal Medicine [address] [address] Belinda Callahan RN Personal history of venous thrombosis and embolism (Primary Dx) Social History Tobacco Use Types [...] Type Priority Associated Diagnoses Orde r Schedule [facility] Genetic Counseling Referral Routine: Next available opening Personal history of venous thrombosis and embolism Expected: 12/25/2023 (Approximate), Expires: 12/24/2024 [facility] Office Visit Referral Routine: Next available opening Personal history of venous thrombosis and embolism Expected: 12/25/2023 (Approximate), Expires: 12/24/2024 documented as of this encounter Results * [facility] US Comprehensive Single (01/10/2024 11:09 AM CDT) [...] ? Study Date: ??01/10/2024 9:57am Pat. NO: ??[id number] ?Referring ??MD: SHERON GRIFFITH Site: ??[facility] ? Industrial Psychology Professor: Janet Perera RDMS : ??1990 ?Age: ?? [...] lb 11 ? oz EFW by ?Hadlock ([id number]) Head / Face / Neck Biometry: Ux Consultant ? 6.1 ? mm CM ?3.9 ? [...] cava. Inferior vena cava. 3-vessel ? view. 9-zevfaz-xmwedfn view. Cardiac position. Cardiac size. Cardiac rhythm. [...] HANDY Study Date: 01/10/2024 9:57am Pat. NO: [id number] Referring MD: SHERON GRIFFITH Site: [facility] Industrial Psychology Professor: Janet Perera RDMS : 1990 Age: 33 [...] 0 lb 11 oz EFW by Hadlock ([id number]) Head / Face / Neck Biometry: Ux Consultant 6.1 mm CM 3.9 mm Nasal bone [...] Superior venacava. Inferior vena cava. 3-vessel view. 9-acsfwt-sjqjfnj view.Cardiac position. Cardiac size. Cardiac rhythm. Right [...] ----- Thank-you for referring your patient for [facility] consult & ultrasoundassessment. I discussed the findings [...] marginal placental cord insertion. Josef Yoo MD [facility] US ORDERABLE S documented in this encounter Visit Diagnoses Diagnosis Personal history of venous thrombosis and embolism- Primary Personal history of venous thrombosis and embolism documented in this encounter Care Teams Rn Embedded Relationship Specialty Start Date End Date No Ref-Primary, Physician PCP - General 12/25/23 documented as of this encounter
--- OUTSIDE RECORDS SUMMARY | 2024-02-23 18:42 | XMS_ITS | Encounter Summary ---
Author Organization [facility] Address [address] [place] [address]. [place] [address] Care Team Providers Care Biometric Fingerprinting Technician Name Role Phone No Ref-Primary, Physician Primary Care Provider Encounter Details Date Type Department Care Team (Late st Contact Info) Description 12/19/2023 Medical Correspondence [facility] [address] [place] [phone] Scan, Non-Provider Social History Tobacco Use Types Packs/Day Years [...] on filedocumented in this encounter Care Teams Biometric Fingerprinting Technician Relationship Specialty Start Date End Date No Ref-Primary, Physician PCP - General 12/25/23 documented as of this encounter
== END 2024-02-07 13:33 | disposition home or self-care (01) ==
LOC: NFLDREF 02-23 18:40
PROVIDERS: Visit Provider Obstetrics & Gynecology
DX: Z86.718 Personal history of other venous thrombosis and embolism (principal)
CPT/HCPCS: 81241

== ENCOUNTER 2024-03-19 08:06 | Outpatient (CLI) | payer BC, SELFPAY ==
--- NOTE | 2024-03-19 08:15 | CRLHL7_ITS ---
For Patients: As a result of the Century Cures Act, medical imaging exams and procedure reports are released immediately into your electronic medical record. You may view this report before your referring provider. If you have questions, please contact your health care provider. INDICATION: Hx of DVT and marginal cord insertion COMPARISON: 10/24/2023 TECHNIQUE: Real time brown scale imaging of the fetus was performed. FINDINGS: Sonographic imaging demonstrates a single living intrauterine gestation. Fetus demonstrates a regular cardiac rate of 155 beats per minute. Fetus has a vertex position. The placenta lies anteriorly. Amniotic fluid volume appears normal and there is a single deepest vertical pocket: 3.4 cm. The estimated weight is 1436gm which lies at the 46th %. BPD 33rd percentile. HC 43rd percentile. AC 51st percentile. FL 41st percentile. The HC/AC ratio measures 1.09 range (0.98-1.20). IMPRESSION: Sonographic gestational age 29 weeks 5 days and sonographic due date 05/30/2024. Good correlation with dates. Estimated weight 46th percentile. Abdominal circumference 51st percentile. Dictated by Felix Caballero MD @ 03/19/2024 12:07:41 PM (Electronically Signed)
== END 2024-03-19 08:07 | disposition home or self-care (01) ==
LOC: US 08:06
PROVIDERS: Visit Provider Obstetrics & Gynecology
DX: O43.193 Other malformation of placenta, third trimester (principal); Z86.718 Personal history of other venous thrombosis and embolism; Z3A.29 29 weeks gestation of pregnancy
CPT/HCPCS: 76816; 86592; 86850

== ENCOUNTER 2024-04-23 12:56 | Outpatient (CLI) | payer BC, OTHER, SELFPAY ==
--- OUTSIDE RECORDS SUMMARY | 2024-04-23 12:58 | XMS_ITS | Referral Summary ---
Author Organization [facility] Address [address] [place] [address] Care Team Providers Care Building Insulation Installer Name Role Phone No Ref-Primary, Physician Primary Care Provider Blanca Cho MD Unavailable Allergies Active Allergy Reactions Criticality Noted Date [...] - Plan of Treatment Not on file Care Teams Building Insulation Installer Relationship Specialty Start Date End Date No Ref-Primary, Physician PCP - General 12/25/23 Blanca Cho MD [address] [place] [address] Assigned OBGYN Provider 01/25/24
--- OUTSIDE RECORDS SUMMARY | 2024-04-23 12:58 | XMS_ITS | Clinical Summary ---
Author Organization [facility] Address [address] [place] [address] Care Team Providers Care Wet Process Assistant Head Miller Name Role Phone No Ref-Primary, Physician Primary Care Provider Blanca Cho MD Unavailable [phone] Allergies Active Allergy Reactions Criticality Noted [...] DISCUSSION 11/04/2023 OBGCT (OB) 02/10/2024 INFLUENZA VACCINE (#1) 2024 , 06/23/2021, 06/19/2020, Additional history exists RSV VACCINE [...] on patient's age to complete this topic Care Teams Wet Process Assistant Head Miller Relationship Specialty Start Date End Date No Ref-Primary, Physician PCP - General 12/25/23 Blanca Cho MD [address] [place] [address] Assigned OBGYN Provider 01/25/24
--- NOTE | 2024-04-23 13:00 | CRLHL7_ITS ---
For Patients: As a result of the Century Cures Act, medical imaging exams and procedure reports are released immediately into your electronic medical record. You may view this report before your referring provider. If you have questions, please contact your health care provider. INDICATION: check growth, marginal placenta CI, COMPARISON: 03/19/2024 TECHNIQUE: Real time brown scale imaging of the fetus was performed. FINDINGS: Sonographic imaging demonstrates a single living intrauterine gestation. Fetus demonstrates a regular cardiac rate of 137 beats per minute. Fetus has a vertex position. The placenta lies anteriorly. Amniotic fluid volume appears normal and there is a single deepest vertical pocket: 3.8 cm. The estimated weight is 2630gm which lies at the 66th %. On the prior OB ultrasound exam dated 03/19/2024 the estimated weight was at the 46th%. BPD 88th percentile. HC 44th percentile. AC is 67th percentile. FL is 63rd percentile. The HC/AC ratio measures 1.03 range (0.93-1.10). IMPRESSION: Sonographic gestational age 35 weeks 3 days and sonographic due date 05/25/2024. Sonographic age is 1 week ahead of the clinical age. Estimated weight 66th percentile. Abdominal circumference 67th percentile. Dictated by Felix Caballero MD @ 04/24/2024 9:50:08 AM (Electronically Signed)
== END 2024-04-23 12:57 | disposition home or self-care (01) ==
LOC: US 12:56
PROVIDERS: Visit Provider Obstetrics & Gynecology
DX: O43.193 Other malformation of placenta, third trimester (principal); Z3A.35 35 weeks gestation of pregnancy
CPT/HCPCS: 76816; 82728

== ENCOUNTER 2024-05-02 07:41 | Outpatient (RCR) | payer OTHER, BC, SELFPAY ==
--- NOTE | 2024-04-24 14:20 | URNOTE ---
Request received for authorization for?Iron Sucrose (Venofer) ([id number]). Prior authorization is not required per [facility] Rep. Sadaf Barragan Ref#[id number], and [facility]vi Cason Rep. Lazara Barragan Ref#[id number].
[2024-05-02 08:02] VITALS: BP 105/68; PULSE 102; RESP 16; TEMP 36.8; O2SAT 95
[2024-05-02] MEDS: 0.9 % SODIUM CHLORIDE 250 ml IV (08:08)
[2024-05-02] MEDS: IRON SUCROSE COMPLEX 200 MG in 0.9 % SODIUM CHLORIDE 100 ml 100 ML 440 MG IVPB (08:08)
[2024-05-02] MEDS: SODIUM CHLORIDE 0.9 % (FLUSH) 10 ML SYRINGE IVF (08:09)
[2024-05-02 08:53] VITALS: BP 117/73; PULSE 95; RESP 16; TEMP 36.8; O2SAT 99
== END 2024-10-29 23:59 | disposition home or self-care (01) ==
LOC: CCIC 07:41
PROVIDERS: Visit Provider Obstetrics & Gynecology
DX: O99.019 Anemia complicating pregnancy, unspecified trimester (principal); D50.9 Iron deficiency anemia, unspecified
CPT/HCPCS: 96374; J1756; J7050

== ENCOUNTER 2024-05-08 14:13 | Outpatient (CLI) | payer BC, SELFPAY ==
--- OUTSIDE RECORDS SUMMARY | 2024-05-08 14:19 | XMS_ITS | Referral Summary ---
Author Organization [facility] Address [address] [place] [address] Care Team Providers Care Fitness Director Name Role Phone No Ref-Primary, Physician Primary Care Provider Blanca Cho MD Unavailable [phone] Allergies Active Allergy Reactions Criticality Noted [...] of Treatment Not on file Care Teams Fitness Director Relationship Specialty Start Date End Date No Ref-Primary, Physician PCP - General 12/25/23 Blanca Cho MD [address] [place] [address] Assigned OBGYN Provider 01/25/24
--- OUTSIDE RECORDS SUMMARY | 2024-05-08 14:19 | XMS_ITS | Clinical Summary ---
Author Organization [facility] Address [address] [place] [address] Care Team Providers Care District Adviser Name Role Phone No Ref-Primary, Physician Primary Care Provider Blanca Cho MD Unavailable [phone] Allergies Active Allergy Reactions Criticality Noted [...] MATERNAL SCREENING DISCUSSION 11/04/2023 OBGCT (OB) 02/10/2024 GROUP B STREP SCREENING 05/04/2024 INFLUENZA VACCINE (#1) 2024 , 06/23/2021, 06/19/2020, Additional history exists RSV VACCINE (1 - Risk 1-dose series) 05/05/2024 DTAP/TDAP/TD IMMUNIZATION (5 - Td or Tdap) 01/27/2028 01/26/2018, 06/19/2017, 07/20/2012, Additional history exists HEPATITIS B IMMUNIZATION Completed 006, 06/09/2005, 04/05/2005 MENINGITIS IMMUNIZATION Aged Out 11/16/2005 No l onger eligible based on patient's age to complete this topic HPV IMMUNIZATION Completed 06/04/2008, , 11/20/2007 Pneumococcal Vaccine: Pediatrics (0 to 5 Years) and At-Risk Patients (6 to 64 Years) Aged Out No longer eligible based on patient's age to complete this topic RSV MONOCLONAL ANTIBODY Aged Out No l onger eligible based on patient's age to complete this topic Care Teams District Adviser Relationship Specialty Start Date End Date No Ref-Primary, Physician PCP - General 12/25/23 Blanca Cho MD [address] [facility] [address] [place] [address] Assigned OBGYN Provider 01/25/24
[2024-05-09 13:23] LABS: Strep B DNA Probe POSITIVE (Negative)
[2024-05-09 13:34] LABS: Strep B Susceptibility Needed? No
== END 2024-05-08 14:14 | disposition home or self-care (01) ==
LOC: NFLDREF 14:14
PROVIDERS: Visit Provider Obstetrics & Gynecology
DX: Z34.83 Encounter for supervision of other normal pregnancy, third trimester (principal)
CPT/HCPCS: 87081; 87653

== ENCOUNTER 2024-05-27 13:19 | Inpatient (IN) | payer BC, SELFPAY ==
[2024-05-27] VITALS (57 sets, daily range): BP systolic 99–133; BP diastolic 54–78; PULSE 68–104; RESP 12–16; TEMP 36.6–37; O2SAT 86–100; BMI 32.0
--- OUTSIDE RECORDS SUMMARY | 2024-05-27 13:22 | XMS_ITS | Clinical Summary ---
Author Organization [facility] Address [address] [place] [address] Care Team Providers Care Inspector Balance Truing Name Role Phone No Ref-Primary, Physician Primary Care Provider Blanca Cho MD Unavailable [phone] Allergies Active Allergy Reactions Criticality Noted [...] 2005 HEPATITIS C SCREENING 01/31/2008 PAP 2011 PHQ-2 (once per calendar year) 2023 MATERNAL SCREENING DISCUSSION 11/04/2023 OBGCT (OB) 02/10/2024 GROUP B STREP SCREENING 05/04/2024 COVID-19 Vaccine ( season) 2024 07/13/2021, 12/05/2020, 11/14/2020 INFLUENZA VACCINE (#1) 2024 , 06/23/2021, 06/19/2020, Additional history exists DTAP/TDAP/TD IMMUNIZATION (5 - Td or Tdap) [...] patient's age to complete this topic RSV VACCINE (No Doses Required) Completed Care Teams Inspector Balance Truing Relationship Specialty Start Date End Date No Ref-Primary, Physician PCP - General 12/25/23 Blanca Cho MD [address] [address] Assigned OBGYN Provider 01/25/24
--- OUTSIDE RECORDS SUMMARY | 2024-05-27 13:22 | XMS_ITS | Referral Summary ---
Author Organization [facility] Address [address] [place] [address] Care Team Providers Care Flash Drier Operator Name Role Phone No Ref-Primary, Physician Primary Care Provider Blanca Cho MD Unavailable [phone] Allergies Active Allergy Reactions Criticality Noted [...] of Treatment Not on file Care Teams Flash Drier Operator Relationship Specialty Start Date End Date No Ref-Primary, Physician PCP - General 12/25/23 Blanca Cho MD [address] [place] [address] Assigned OBGYN Provider 01/25/24
[2024-05-27 14:08] LABS: Basophils Absolute Auto 0.03 K/uL (0.00-0.30); Basophils Percent Auto 0.4 % (0.0-3.0); Hematocrit 33.1 % (33.0-51.0); Hemoglobin* 10.9 gm/dL (12.0-16.0); Immature Granulocytes Abs Auto 0.02 K/uL (0.00-0.30); Immature Granulocytes Pct Auto 0.2 %; Mean Corpuscular HGB Conc 33 gm/dL (32-36); Mean Corpuscular Hemoglobin 28 pg (26-34); Mean Corpuscular Volume 85 fL (80-100); Monocytes Percent Auto 8.1 % (0.0-11.0); Neutrophils Percent Auto 75.3 % (42.0-72.0); Platelet Count* 250 K/uL (140-440); RDW Coefficient of Variation % 14.2 % (11.5-15.5); Red Blood Count 3.88 m/uL (4.00-5.20); White Blood Count* 8.19 K/uL (4.50-11.00)
[2024-05-27 14:17] LABS: Slide Review Reflex No
[2024-05-27] MEDS: LACTATED RINGERS 1000 ML 1,000 ML 125 ML IV (14:29)
[2024-05-27] MEDS: AMPICILLIN 2 GM in 0.9 % SODIUM CHLORIDE Mini-bag 100 ML IVPB (14:29)
[2024-05-27] MEDS: OXYTOCIN 30 unit/500 ML in NS 30 UNIT/500 ML BAG IVPB (15:09)
--- NOTE | 2024-05-27 17:54 | P.LDBA_ITS ---
Subjective History of Present Illness Time Seen by Provider: 17:54 Date Seen: 05/27/24 Narrative: Patient is being admitted to Labor and Delivery for scheduled IOL. She is a 34 year old at weeks gestation. Her full history and physical was dictated by Dr. Melendez on 05/13/24. Please see this for details. Active movement. Denies LOF, vaginal bleeding or abnormal vaginal discharge. Irregular contractions. Specific Issues/Plans Luke H&P 05/13/[address] Melendez # Hx of DVT while on OCPs, two episodes in her teens * Lovenox 40mg daily started at NOB * Adjust upwards to intermediate dosing per MFM: 40 mg BID- Patient is only utilizing once a day 03/19/24, encouraged to utilize bid * IOL at 39 weeks. Hold Lovenox 24 hours prior to scheduled IOL or if signs / symptoms of labor * Resume Lovenox 4-6 hrs after vaginal delivery, 6-12 hours after , at least 24 hours after neuraxial anesthesia and at least 4 hours after epidural catheter removal. Continue through 6 weeks . * Negative for beta-2 microglobulin antibody, anticardiolipin antibody, Factor V Leiden and Prothrombin (Factor II) gene mutations * Testing to be done when off anticoagulation: Lupus anticoagulant, protein C and S activity, antithrombin activity. # Marginal cord insertion. * Growth US at 28 at 34 weeks: 04/23/2024 EFW 2603 g (66%) * If progression to a velamentous cord insertion, add weekly surveillance starting at 36 weeks. # Hx of vacuum delivery with episiotomy pushed 4 hours episiotomy was for posterior shoulder after ant shoulder delivered # Hx of endometriosis # Hx of PCOS # Family hx of Down's syndrome FOB's brother recommended genetic screening, undecided # Rh negative: Due to shortage of Rhogam, has agreed to be tested Spouse, Luke, is Rh (-) so the patient does not need rhogam. # Lentiginous compound nevus with moderate atypia. Margins clear. # Anemia HGB at 29 weeks: 10.1mg/dL Start iron supplement-ordered Ultrasounds: -Level 2 01/10/24: Breech, anterior placenta without previa but with marginal cord insertion, three-vessel cord, normal fluid, EFW 43%, AC 68%. -03/19/2024: Vertex, single deepest pocket of amniotic fluid: 3.4 cm, BPD: 33.1 percentile, HC: 43 0.1 percentile, AC: 50.7 percentile, FL: 40.6 percentile. EFW: 46.1 percentile -04/23/2024: Vertex, SDP 3.8 cm, BPD 88%, HC 44%, AC 67%, FL 63%, EFW 5 lb 12 oz or 2603 g (66%) 32 week PHQ = 2, JESSICA = 1 RSV: 05/08/24 OB - Problem Based A/P Additional Plan (1) History of DVT (deep vein thrombosis): Problem details: x2 in teens when using combined OCPs. Thrombophilia w/u neg. Status: Acute (2) : Status: Acute (3) Anemia: Status: Acute Plan - Will continue titrating Pitocin per protocol - GBS +, currently on antibiotic. OB Exam Physical Exam Vital signs: Temp Pulse Resp BP Pulse Ox 97.8 F 78 16 117/68 97 05/27/24 13:35 05/27/24 15:48 05/27/24 13:35 05/27/24 15:48 05/27/24 15:48 Narrative: Physical exam: General: No acute distress Psych: Alert and oriented x4, full affect HEENT: Normocephalic, atraumatic Lungs: Unlabored breathing Abdomen: Gravid. soft, no tenderness, rebound, or guarding Skin: No lesions or rashes Lower extremities: No edema or erythema Pelvic exam: Dry perineum. 5/50/-2, moderately soft, mid. AROM at 1739, clear fluid. Patient tolerated the procedure well.
[2024-05-27] MEDS: AMPICILLIN 1 GM in 0.9 % SODIUM CHLORIDE Mini-bag 100 ML IVPB (18:12)
[2024-05-27] MEDS: LACTATED RINGERS 1000 ML 1,000 ML 1200 ML IV (21:00)
[2024-05-27] MEDS: LIDOCAINE 2% (PF) 5 ML VIAL EPIDURAL (21:20)
[2024-05-27] MEDS: ROPIVACAINE 0.2% 100 ml 100 ML 12 MG EPIDURAL (21:20)
--- NOTE | 2024-05-27 21:54 | P.ANBPRC_ITS ---
[facility] Medical History History of DVT (deep vein thrombosis) ?Z86.718 - Personal history of other venous thrombosis and embolism (ICD-10) History of vaginal delivery (03/30/18) Surgical History History of laparoscopy ?Z98.890 - Other specified postprocedural states (ICD-10) History of tonsillectomy and adenoidectomy ?Z90.89 - Acquired absence of other organs (ICD-10) History of appendectomy (2009) ?Z90.49 - Acquired absence of other specified parts of digestive tract (ICD- 10) Family History Other Colon cancer Diabetes Social History What is your current living situation?: I presently have a place to live Problems where you live: no known problems In the past 12 months, utilities in danger of being shut off: no In past 12 months, lack of transportation kept you from medical appts, meetings, work, or getting things needed for daily living: no In the past 12 mos, have been you worried that your food would run out before you had money to buy more?: never true In the past 12 mos, the food you bought just didn't last and you didn't have money to buy more?: never true Smoking Status: Never smoker How often does anyone, including family, friends and others, physically hurt you : never How often does anyone, including family, friends and others, insult or talk down to you: never How often does anyone, including family, friends and others, threaten you with harm: never How often does anyone, including family, friends and others, scream or curse at you: never Little interest or pleasure in doing things: not at all Feeling down, depressed, or hopeless: not at all Meds Home Medications and Allergies Home Medications ?Medication ?Instructions ?Recorded ?Confirmed ?Type vitamins no.148-iron 27 1 cap PO DAILY 10/24/23 05/27/24 History mg-folate 1 mg-dha 205 mg capsule calcium carbonate (Tums) 200 mg PO BID 04/01/24 05/27/24 History Allergies Allergy/AdvReac Type Severity Reaction Status Date / Time Sulfa (Sulfonamide Allergy Intermediate Rash Verified 05/27/24 14:02 Antibiotics) Results Labs Labs: Laboratory Results - last 24 hr 05/27/24 13:54 WBC 8.19 RBC 3.88 L Hgb 10.9 L Hct 33.1 MCV 85 MCH 28 MCHC 33 RDW Coeff of Rivera 14.2 Plt Count 250 Neut % (Auto) 75.3 H Lymph % (Auto) 16.0 L [place] % (Auto) 8.1 Eos % (Auto) 0.0 Baso % (Auto) 0.4 Neut # (Auto) 6.20 Lymph # (Auto) 1.30 [place] # (Auto) 0.70 Eos # (Auto) 0.00 Baso # (Auto) 0.03 Abs Immat Gran (auto) 0.02 Imm/Tot Granulo (auto) 0.2 Blood Type O Negative Antibody Screen NEGATIVE Vital Signs Vital Signs: Last Vital Signs Temp 98.6 F 05/27/24 20:30 Pulse 74 05/27/24 21:52 Resp 12 05/27/24 20:30 BP 117/71 05/27/24 21:52 Pulse Ox 100 05/27/24 21:49 Weight: 104.099 kg Height: 180.34 cm Anesthesia Procedures Epidural Insertion Patient Location: OB Start Time: 21:14 Stop Time: 22:02 Start Date: 05/27/24 Stop Date: 05/27/24 Reason for Block: procedure for pain Patient Position: sitting Performed By: Nettie Martinez Preanesthetic Checklist: IV checked, risks and benefits discussed, monitors and equipment checked, pre-op evaluation, timeout performed and anesthesia consent Prep: chlorhexidine gluconate Monitoring: blood pressure monitoring, continuous pulse oximetry and heart rate Approach: midline Vertebral Space: lumbar (1-5) Epidural Technique: JUAN FRANCISCO saline Needle Type: Tuohy needle Injection Technique: continuous catheter (continuous catheter) Needle gauge: 17 Needle Length (cm): 10 cm Needle Insertion Depth (cm): 8 Catheter Gauge: 19 Catheter Type: multi-orifice Catheter at skin depth (cm): 15 Test Dose Result: negative and lidocaine 1.5% with epinephrine 1 to 200,000
[2024-05-28] VITALS (24 sets, daily range): BP systolic 111–128; BP diastolic 68–90; PULSE 54–81; RESP 16–18; TEMP 36.4–36.9; O2SAT 97–99
--- NOTE | 2024-05-28 00:14 | W.PM.VAGDEL1 ---
Procedure Delivery date: 05/28/24 Procedure Done: Global Events: Labor Induction Delivery augmentation: rupture of membranes and pitocin Delivery monitor: external FHT Route of delivery: Laceration description: None Anesthesia type: Epidural Narrative: The patient is a 34 year-old G 2 P 1001 admitted on May 28 at 39 and 2/7 weeks gestation for scheduled IOL. GBS positive. Received appropriate antibiotic Labor Analgesia: Epidural Pitocin: Yes for induction and 3rd stage AROM: 05/27 at 1739, with clear fluid Labor onset: 05/27 at 1503 Complete: 05/27 at 2252 Pushin/23 at 2300 heart tones during second stage were cat II due to variable decelerations during pushing that resolve with completion of pushing. At 2324 a viable female infant delivered in vertex OA presentation over intact via spontaneous vaginal delivery. The 's body was delivered in the usual manner without difficulty. The infant was placed on maternal abdomen. The cord was clamped and cut after a 30-60 second delay. The nose and mouth were bulb suctioned. weight: pending. 8 at 1 minute and 9 at 5 minutes. Shoulder dystocia: No. Nuchal cord: 1 - reduced. Placenta delivered spontaneously and complete at 2331 with a 3-vessel cord. Placenta examined and noted to be complete. The cervix and vagina were inspected for lacerations, and none were noted. Laceration(s): None. Complications: None Estimated blood loss: 50 cc Sponge and needles counts are correct. Mother and infant were stable at the time of this note.
[2024-05-28] MEDS: DOCUSATE SODIUM 100 MG CAPSULE PO (10:07)
--- NOTE | 2024-05-28 10:17 | PM.OBPNVD1 ---
OB - PN:Subj Subjective Date Seen: 05/28/24 Narrative: The patient feels well.? The pain is well controlled with current medications.? She has no new complaints.?She will be starting her lovenox [address] per Dr Garzon. This is scheduled. She plans to stay on for 6 weeks and will need a new RX. Urinary output is adequate and she is voiding without difficulty.? Has a good appetite, is tolerating a general diet, is passing flatus, and has not had a bowel movement.? Has scant amount of rubra lochia.? She is ambulating well now that the epidural has completely worn off. She is and reports it is going well.? OB - PN: Obj Exam Physical Exam: Vital signs: Temp Pulse Resp BP Pulse Ox O2 Del Method 98.2 F 57 L 16 114/68 99 Room Air 05/28/24 08:35 05/28/24 08:35 05/28/24 08:35 05/28/24 08:35 05/28/24 04:18 05/28/24 04:18 Narrative: GENERAL APPEARANCE:? normal affect, alert, no distress MOOD:? appropriate CHEST:? clear to auscultation HEART:? regular rate and rhythm ABDOMEN:? soft, non-tender the uterine fundus is At Umbilicus, Midline and is appropriate for the stage of recovery. EXTREMITIES:? normal and no edema : OB - PN: Obj Data Labs Labs: Laboratory Results - last 24 hr 05/27/24 13:54 WBC 8.19 RBC 3.88 L Hgb 10.9 L Hct 33.1 MCV 85 MCH 28 MCHC 33 RDW Coeff of Rivera 14.2 Plt Count 250 Neut % (Auto) 75.3 H Lymph % (Auto) 16.0 L [place] % (Auto) 8.1 Eos % (Auto) 0.0 Baso % (Auto) 0.4 Neut # (Auto) 6.20 Lymph # (Auto) 1.30 [place] # (Auto) 0.70 Eos # (Auto) 0.00 Baso # (Auto) 0.03 Abs Immat Gran (auto) 0.02 Imm/Tot Granulo (auto) 0.2 Blood Type O Negative Antibody Screen NEGATIVE OB - PN: A/P Delivery Assessment and Plan (1) History of DVT (deep vein thrombosis): Problem details: x2 in teens when using combined OCPs. Thrombophilia w/u neg. Status: Acute (2) Anemia: Status: Acute (3) care and examination of lactating mother: Status: Acute Plan , may see if needed? Routine Care Initiate PP lovenox as planned-Will need RX sent. Signs and symptoms of blood clots reviewed. Anticipate discharge 05/29 AM
[2024-05-28] MEDS: IBUPROFEN 600 MG TABLET PO (17:21)
[2024-05-28] MEDS: ENOXAPARIN 40 MG/0.4 ML INJ SUBCUT (21:34)
[2024-05-29 04:46] VITALS: BP 115/71; PULSE 66; RESP 19; TEMP 36.6; O2SAT 98
[2024-05-29 06:43] LABS: Hemoglobin* 9.8 gm/dL (12.0-16.0)
[2024-05-29 08:22] VITALS: BP 110/75; PULSE 68; RESP 16; TEMP 36.5; O2SAT 97
[2024-05-29] MEDS: DOCUSATE SODIUM 100 MG CAPSULE PO (09:00)
[2024-05-29 09:25] LABS: Rapid Plasma Reagin (RPR) Non Reactive (Non Reactive)
--- NOTE | 2024-05-29 10:46 | PM.OBDSVD1 ---
DS: Providers Provider Date Seen: 05/29/24 Date of admission: 05/27/24 13:19 Primary care physician: Not a Local Provider Admitting Clinician: Shawanda Brody MD Attending Physician on discharge: Shawanda Brody MD DS: Diagnosis Discharge Diagnosis (1) care and examination of lactating mother: Status: Acute (2) History of DVT (deep vein thrombosis): Status: Acute Problem details: x2 in teens when using combined OCPs. Thrombophilia w/u neg. (3) Anemia: Status: Acute Exam Narrative: Exam Narrative: GENERAL APPEARANCE:? normal affect, alert, no distress MOOD:? appropriate CHEST:? clear to auscultation HEART:? regular rate and rhythm ABDOMEN:? soft, non-tender the uterine fundus is At Umbilicus, Midline and is appropriate for the stage of recovery. PERINEUM:? mild edema of the perineum. EXTREMITIES:? normal and no edema Const: Vital Signs, click to edit/add: Vital Signs - 24 hr 05/28/24 12:34 05/28/24 12:34 05/28/24 12:37 Temperature 98.2 F Pulse Rate 62 Pulse Rate [Pulse Oximeter] 62 Respiratory Rate 16 Blood Pressure 123/74 Blood Pressure [Ri ght Arm] 123/74 Pulse Oximetry Oxygen Delivery Me thod Room Air 05/28/24 16:26 05/28/24 19:45 05/28/24 23:43 Temperature 98.5 F 98.0 F 97.6 F Pulse Rate Pulse Rate [Pulse Oximeter] 81 64 67 Respiratory Rate 16 18 18 Blood Pressure Blood Pressure [Ri ght Arm] 117/75 111/72 114/72 Pulse Oximetry 97 98 Oxygen Delivery Me thod Room Air Room Air 05/29/24 04:46 05/29/24 08:22 Temperature 97.8 F 97.7 F Pulse Rate Pulse Rate [Pulse Oximeter] 66 68 Respiratory Rate 19 16 Blood Pressure Blood Pressure [Ri ght Arm] 115/71 110/75 Pulse Oximetry 98 97 Oxygen Delivery Me thod Room Air Room Air Documenting provider has reviewed patient's vital signs: yes OB - DS: Summary Hospital Course Hospital Course: Katharina is a 34 y.o. G 2 P 2 who was admitted to L & D for induction of labor for hx of DVT. ?She had a NVD that was uncomplicated. The patient feels well. ?The pain is well controlled with current medications. ?She has no new complaints. ?She is breast feeding and reports things are going well. the patient has done well.? Vitals have been stable.? She has remained afebrile.? Has a good appetite, is tolerating a general diet. ?She is voiding without difficulty.? She is passing gas and has not had a bowel movement.? She is ambulating and denies any dizziness.? Has small amount of rubra lochia. She has a history of DVT's and was on Lovenox QD through her . Per her [facility] note, was recommended to be on intermediate dosing due to her history or BID Lovneox. [facility] recommended that she continue with BID Lovenox until 6 weeks . She had declined BID dosing during . This recommendation was reviewed with her. Strongly encouraged that she do BID dosing until 6 weeks. She desires not to do this, encouraged her to consider it. She is open to BID dosing for 2 weeks then decrease down to once daily after that. We reviewed why it is recommended and again encouraged her to consider BID dosing until 6 weeks but at minimum until 2 weeks . Problems: Anemia, Hx of DVT x2 plan: Discharge home with baby. Follow up in 2 weeks and 6 weeks. , may see if needed Hgb 10.0. Iron supplement ordered orally every other day Hx of DVT Recommended Lovenox 40 mg BID per MFM until 6 weeks Pt agrees to take for 2 weeks but may consider switching to 1x per day thereafter. She will continue the once day then until 6 weeks posptartum Follow up in 3-5 days Call for signs/symptoms of preeclampsia Peripartum Data Infant delivery method: Vaginal Laceration description: None complications: none [place] Gender: Female Discharge Plan: Home Status at Discharge Functional status at discharge: independent ambulation Overall status at discharge: patient is progressing back to baseline Time Spent with Patient Time attestation: Total time spent providing and/or coordinating discharge services: Time spent: Less than 30 minutes Discharge Plan Discharge Disposition: Home, Self-Care Date of Admission: 05/27/24 13:19 Attending Provider on Discharge: China Yañez Primary Care Provider: Provider,Not a Local Condition: Stable Anticipated Discharge Date/Time: 05/29/24 12:00 Discharge Medications: New acetaminophen 500 mg Tablet 1,000 mg PO Q6H PRN (Reason: pain/fever) Qty: 0 0RF docusate sodium 100 mg Capsule 100 mg PO DAILY Qty: 90 0RF ibuprofen 600 mg Tablet 600 mg PO Q6H PRNQty: 60 0RF Continued calcium carbonate [Tums] 200 mg calcium (500 mg) tablet,chewable 200 mg PO BID [id number] 6-dha 27 mg iron-1 mg -205 mg capsule 1 cap PO DAILY ferrous sulfate 325 mg (65 mg iron) tablet 650 mg PO Q OTHER DAY Qty: 90 0RF Changed enoxaparin [Lovenox] 40 mg/0.4 mL syringe 40 mg subcut BID Qty: 12 2RF Discharge Orders: Discharge Order (Routine); Ordered 05/29/24 Ordered By: China Yañez Patient Education: OB Over the Counter Medication Information, OB Vaginal/Breast Feeding Additional Instructions: Discharge instructions were reviewed with the patient including signs and symptoms of infection and home going medications Nothing vaginally for 6 weeks: no tampons or intercourse Off Work or School for 6 weeks 2-week visit: discuss infant feeding concerns, review control options and screen for anxiety/depression. 6-week visit for an annual exam. consultation services are available to all mothers and babies for the first year after delivery.? To make an appointment, please call [phone]. Activity Level: Activity as Tolerated Discharge Diet: Regular Follow Up Appointments: [facility] [Provider Group] Forms: [employer] Info Instructions
[2024-05-29] MEDS: ENOXAPARIN 40 MG/0.4 ML INJ SUBCUT (11:15)
== END 2024-05-29 12:10 | disposition home or self-care (01) | DRG 560 ==
PROVIDERS: Admitting Provider Obstetrics & Gynecology; Visit Provider Obstetrics & Gynecology
DX: O99.824 Streptococcus B carrier state complicating childbirth (principal); Z86.718 Personal history of other venous thrombosis and embolism; Z79.01 Long term (current) use of anticoagulants; O99.02 Anemia complicating childbirth; D64.9 Anemia, unspecified; Z3A.39 39 weeks gestation of pregnancy; Z37.0 Single live birth
CPT/HCPCS: 01967; 36415; 85018; 85025; 86592; 86850; 86900; 86901; 88307; A9270; J0290; J1650; J2371; J2795; J7120

== ENCOUNTER 2024-07-29 13:53 | Outpatient (CLI) | payer BC, SELFPAY ==
--- OUTSIDE RECORDS SUMMARY | 2024-08-01 05:05 | XMS_ITS | Referral Summary ---
Author Organization [facility] Address [address] [place] [id number] Care Team Providers Care Warehouse Stocker Name Role Phone No Ref-Primary, Physician Primary Care Provider Blanca Cho MD Unavailable Allergies Active Allergy Reactions Criticality Noted Date Comments Sulfa Antibiotics Rash High 12/19/2023 Medications enoxaparin ANTICOAGULANT (LOVENOX ANTICOAGULANT) 40 MG/0.4ML syringe Inject 40 mg Subcutaneous daily 10/24/19 24 Active MV-Min-Fe Fum-FA-DHA ( 1 PO) Take 1 tablet by mouth daily 10/24/19 24 Active Social History Tobacco Use Types Packs/Day Years Used Date Smoking Tobacco: Never Assessed Adolescent Education Answer Date Record ed Getting School Help Needed Not on file 12/19 Estimated Date of Delivery Comme nts Yes 06/01/2024 Based on last me nstrual period of 08/26/2023 Sex and Gender Information Value Date Recorded Sex Assigned at Not on file Legal Sex Female 10:05 AM CDT Gender Identity Not on file Sexual Orientation Not on file Last Filed Vital Signs Vital Sign Reading Time Taken Comments Blood Pressure 132/72 01/10/2024 10:09 AM CDT Pulse 73 01/10/2024 10:09 AM CDT Temperature 36.8 C (98.3 F) 01/10/2024 10:09 AM CDT Respiratory Rate 18 01/10/2024 10:09 AM CDT Oxygen Saturation 100% 01/10/2024 10:09 AM CDT RA Inhaled Oxygen Concentration - - Weight - - Height - - Body Mass Index - - Plan of Treatment Not on file Insurance [facility] [employer] [place] [address] [facility] [employer] Care Teams Warehouse Stocker Relationship Specialty Start Date End Date No Ref-Primary, Physician PCP - General 12/25/23 Blanca Cho MD [address] [place] [address] Assigned OBGYN Provider 01/25/24
--- OUTSIDE RECORDS SUMMARY | 2024-08-01 05:05 | XMS_ITS | Clinical Summary ---
Author Organization [facility] Address [address] [place] [id number] Care Team Providers Care Wind Energy Project Manager Name Role Phone No Ref-Primary, Physician Primary Care Provider Blanca Cho MD Unavailable [phone] Allergies Active Allergy Reactions Criticality Noted [...] topic RSV VACCINE (No Doses Required) Completed Insurance [facility] [employer] PRO[employer] [facility] [employer] Care Teams Wind Energy Project Manager Relationship Specialty Start Date End Date No Ref-Primary, Physician PCP - General 12/25/23 Blanca Cho MD [address] [address] Assigned OBGYN Provider 01/25/24
== END 2024-07-29 13:54 | disposition home or self-care (01) ==
LOC: NFLDREF 08-01 05:03
PROVIDERS: Visit Provider Obstetrics & Gynecology
DX: Z86.718 Personal history of other venous thrombosis and embolism (principal)
CPT/HCPCS: 85300; 85303; 85306